=== PATIENT | female | born 1975 | race Caucasian/White ===

== ENCOUNTER 2017-08-14 20:26 | Emergency (ER) | payer BC ==
[2017-08-14] MEDS ORDERED: DIPHENHYDRAMINE HCL IV 50 MG/ML VIAL IVP ONE (20:43)
[2017-08-14] MEDS ORDERED: METOCLOPRAMIDE HCL 10 MG/2 ML VIAL IVP ONE (20:43)
[2017-08-14] MEDS ORDERED: 0.9 % SODIUM CHLORIDE 1000ML 1,000 ML IV SCH (20:45)
--- NOTE | 2017-08-14 20:48 | Emergency Department Record ---
History of Present Illness - General Chief Complaint: Headache Migraine Stated Complaint: HEART,NAUSEA,VISON IS BLURED Time Seen by Provider: 08/14/17 20:42 Source: Patient Mode of Arrival: Ambulatory Limitations: No limitations - History of Present Illness Initial Comments: 41 yo female presents to ED with a CC of headache, nausea, and vomiting symptoms that began yesterday, worsened today. 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 Patient denies fevers, chills, or abdominal pain symptoms, patient denies urinary symptoms. Patient also denies health problems at her baseline. MD Complaint: Headache Onset/Timin -: Days(s) Onset Description: Gradual Location: Diffuse Severity: Moderate Quality: Aching Consistency: Constant Improves With: Nothing Worsens With: None Associated Symptoms: Nausea, Vomiting Treatments Prior to Arrival: None - Related Data Home Medications Medication Instructions Recorded Confirmed Last Taken Methylphenidate HCl 5 mg PO BID 08/14/17 08/14/17 08/14/17 Previous Rx's Medication Instructions Recorded Ondansetron [Zofran Odt] 4 mg PO Q6H PRN #20 tab.rapdis 08/14/17 Allergies Allergy/AdvReac Type Severity Reaction Status Date / Time codeine Allergy VOMITING Unverified 07/22/16 07:25 Review of Systems Constitutional: Reports: Malaise. Denies: Chills, Fever, Night sweats Eyes: Denies: Eye discharge, Eye pain ENT: Denies: Congestion, Ear pain, Epistaxis Respiratory: Denies: Cough, Dyspnea Cardiovascular: Denies: Chest pain, Dyspnea on exertion Endocrine: Denies: Fatigue, Heat or cold intolerance Gastrointestinal: Reports: Nausea, Vomiting. Denies: Abdominal pain, Constipation Genitourinary: Denies: Incontinence, Retention Musculoskeletal: Denies: Arthralgia, Back pain, Gout, Joint swelling Skin: Denies: Bruising, Change in color Neurological: Reports: Headache. Denies: Abnormal gait, Confusion, Seizure Psychiatric: Denies: Anxiety Hematological/Lymphatic: Denies: Anemia, Blood Clots Physical Exam - General General Appearance: Alert, Oriented x3, Cooperative, Mild distress Limitations: No limitations - Head Head exam: Atraumatic, Normocephalic, Normal inspection Head exam detail: negative: Abrasion, Contusion, Perla's sign, General tenderness, Hematoma, Laceration - Eye Eye exam: Normal appearance. negative: Conjunctival injection, Periorbital swelling, Periorbital tenderness, Scleral icterus - ENT Ear exam: negative: Auricular hematoma, Auricular trauma Nasal Exam: negative: Active bleeding, Discharge, Dried blood, Foreign body Mouth exam: negative: Drooling, Laceration, Muffled voice, Tongue elevation - Neck Neck exam: Normal inspection. negative: Meningismus, Tenderness - Respiratory Respiratory exam: Normal lung sounds bilaterally. negative: Rales, Respiratory distress, Rhonchi, Stridor - Cardiovascular Cardiovascular Exam: Regular rate, Normal rhythm, Normal heart sounds - GI/Abdominal GI/Abdominal exam: Soft. negative: Rebound, Rigid, Tenderness - Rectal Rectal exam: Deferred - exam: Deferred - Extremities Extremities exam: Normal inspection. negative: Calf tenderness, Pedal edema, Tenderness - Back Back exam: Denies: CVA tenderness (R), CVA tenderness (L) - Neurological Neurological exam: Alert, Normal gait, Oriented X3 - Psychiatric Psychiatric exam: Normal affect, Normal mood - Skin Skin exam: Normal color. negative: Abrasion Type of lesion: negative: abrasion Course - Reevaluation(s) Reevaluation #1: 08/14/17 22:01 Labs reviewed and are grossly unremarkable for an acute process. Reevaluation #2: 08/14/17 22:08 Patient was reassessed and updated on all results, reports that her headache symptoms have completely resolved and her nausea symptoms have resolved. Patient appears stable for discharge at this time. Medical Decision Making - Lab Data Result diagrams: 08/14/17 21:00 08/14/17 21:00 Disposition Disposition: Discharge Clinical Impression: Nausea & vomiting Qualifiers: Vomiting type: unspecified Vomiting Intractability: non-intractable Qualified Code(s): R11.2 - Nausea with vomiting, unspecified Acute headache Qualifiers: Headache type: unspecified Intractability: not intractable Qualified Code(s): R51 - Headache Disposition: Home, Self-Care Condition: (2) Stable Instructions: Acute Nausea and Vomiting (ED) Additional Instructions: Return to ED if your symptoms worsen or if you have any concerns. Ximena as directed for your nausea/vomiting symptoms. Follow-up with your family doctor in 3-5 days as directed. Prescriptions: Ondansetron [Zofran Odt] 4 mg PO Q6H PRN #20 tab.rapdis PRN Reason: Nausea/Vomiting Forms: Patient Portal Access Time of Disposition: 22:10 Quality - Quality Measures Quality Measures: N/A - Blood Pressure Screening Does Patient Have Any of the Following: No Blood Pressure Classification: Normal BP Reading Systolic Measurement: 108 Diastolic Measurement: 54 Screening for High Blood Pressure: < Normal BP, F/U Not Required > [[id number]]
[2017-08-14 21:12] LABS: BASO % 0.3 % (0-6); EOS % 3.9 % (0-6); GRAN % 75.1 % (47-80); HEMATOCRIT 37.9 % (35.0-47.0); LYMPH % 12.9 % (16-45); MEAN CELL VOLUME 85.2 fl (81-97); MEAN CORPUSCULAR HEMOGLOBIN 29.2 pg (27-33); MEAN CORPUSCULAR HGB CONC 34.3 g/dl (32-36); MONO % 7.8 % (0-9); PLATELET COUNT 219 K/uL (130-400); RED BLOOD COUNT 4.45 M/uL (3.80-5.40); RED CELL DISTRIBUTION WIDTH 13.3 % (11.5-14.5); WHITE BLOOD COUNT W/O DIFF 5.9 K/uL (4.2-12.2)
[2017-08-14 21:28] LABS: ALB/GLOB RATIO 1.7 (1.1-1.8); ALBUMIN 4.3 g/dL (4.0-5.0); ALKALINE PHOSPHATASE 51 U/L (35-104); ALT/SGPT 23 U/L (<33); AST/SGOT 20 U/L (10.0-35.0); BLOOD UREA NITROGEN 8 mg/dL (6-20); CREATININE 0.7 mg/dL (0.5-0.9); EST GLOMERULAR FILTRATION RATE > 60 mL/min; GLUCOSE,RANDOM 89 mg/dL (74-109); TOTAL PROTEIN 6.9 g/dL (6.6-8.7)
[2017-08-14] MEDS ORDERED: ONDANSETRON 4 MG ODT TABLET SL ONE (22:10)
== END 2017-08-14 22:34 | disposition home or self-care (01) ==
LOC: ER 20:26
DX: R51 Headache (principal); R11.2 Nausea with vomiting, unspecified
CPT/HCPCS: 80053; 85025; 96374; 96375; 99284; J1200; J2765